=== PATIENT | female | born 1975 | race Caucasian/White ===

== ENCOUNTER 2016-12-28 16:16 | Emergency (ER) | payer BC ==
[~2016-12-28 16:16] MED LIST: AMITRIPTYLINE H10 M1 PO; AZO CRANBERRY450 MG PO; BENTYL10 M1 PO; CIPRO500 M2 PO; ELMIRON100 M1 PO; MACROBID 100 M100 M1 PO; NORCO 5-325 TA1 EACH PO; NORCO 5/325 TAB1 TAB PO; PERCOCET 5/3251 TAB PO; RELPAX40 M1 PO; RESTASIS0.4 ML/EA EACH EYE; [UNRECOGNIZED DRUG - OTHER] PO
[2016-12-28] MEDS ORDERED: AMITRIPTYLINE H25 M1 PO (16:46)
[2016-12-28] MEDS ORDERED: LIDOCAINE (16:48)
[2016-12-28] MEDS ORDERED: SODIUM BICARBONATE (16:48)
[2017-02-15] MEDS ORDERED: URIBEL CAPSULE1 EAC1 PO (15:58)
[2017-02-15] MEDS ORDERED: KEFLEX500 M4 PO (17:18)
[2017-02-15] MEDS ORDERED: ZOFRAN4 M2 PO (17:20)
== END 2016-12-28 17:24 ==
LOC: EDMED 16:16
DX: S06.0X0A Concussion without loss of consciousness, initial encounter (principal); S00.83XA Contusion of other part of head, initial encounter; W22.8XXA Striking against or struck by other objects, initial encounter; Y92.89 Other specified places as the place of occurrence of the external cause